=== PATIENT | male | born 1930 | race Asian ===

== ENCOUNTER → 2016-05-05 | Outpatient (CLI) | payer MEDICARE, OTHER ==
[~2016-05-05] MED LIST: ASPI81 PO; FINA5TAB41 PO; METO25 PO
[2016-05-05 09:37] LABS: CALCIUM, TOTAL 9.1 mg/dL (8.8-10.5); CHOL/HDL RATIO 3.4 (4.2-7.3); CREATININE 1.53 mg/dL (0.60-1.30); POTASSIUM 4.7 mmol/L (3.5-5.1)
[2016-05-05 09:41] LABS: HEMOGLOBIN A1C 5.7 % (4.5-6.2)
[2016-05-05 10:06] LABS: URIC ACID 8.2 mg/dL (2.6-7.2)
== END | disposition home or self-care (01) ==
LOC: LABPV 07:03
PROVIDERS: ATTEND Internal Medicine Nephrology
DX: I12.9 Hypertensive chronic kidney disease with stage 1 through stage 4 chronic kidney disease, or unspecified chronic kidney disease (principal); N18.3 Chronic kidney disease, stage 3 (moderate); M10.9 Gout, unspecified; E55.9 Vitamin D deficiency, unspecified
CPT/HCPCS: 83036; 83970; 84550

== ENCOUNTER → 2016-06-04 | Outpatient (CLI) | payer MEDICARE, OTHER | END | disposition home or self-care (01) | LOC: RADPV 07:52 | PROVIDERS: ATTEND Otolaryngology | DX: R13.10 Dysphagia, unspecified (principal); Z72.0 Tobacco use | CPT/HCPCS: 74220; 74230; 92611; G8996; G8997; G8998 ==

== ENCOUNTER → 2016-09-09 | Outpatient (CLI) | payer MEDICARE, OTHER ==
[2016-09-09 13:06] LABS: CALCIUM, TOTAL 9.5 mg/dL (8.8-10.5); CREATININE 1.99 mg/dL (0.60-1.30); POTASSIUM 4.3 mmol/L (3.5-5.1)
[2016-09-09 14:49] LABS: ADD UA MICROSCOPIC NO; APPEARANCE,URINE CLEAR (CLEAR); GLUCOSE, URINE (UA) NEGATIVE (NEGATIVE); KETONES,URINE NEGATIVE (NEGATIVE); LEUKOCYTE ESTERASE ,URINE NEGATIVE (NEGATIVE); OCCULT BLOOD,URINE NEGATIVE (NEGATIVE); PH,URINE 5.5 (5.0-8.0); PROTEIN,URINE NEGATIVE (NEGATIVE)
== END | disposition home or self-care (01) ==
LOC: LABPV 10:35
PROVIDERS: ATTEND Internal Medicine Nephrology
DX: I12.9 Hypertensive chronic kidney disease with stage 1 through stage 4 chronic kidney disease, or unspecified chronic kidney disease (principal); N18.3 Chronic kidney disease, stage 3 (moderate)

== ENCOUNTER → 2016-10-08 | Outpatient (CLI) | payer MEDICARE, OTHER | END | disposition home or self-care (01) | LOC: RADPV 12:14 | PROVIDERS: ATTEND Internal Medicine | DX: I70.0 Atherosclerosis of aorta (principal) ==